=== PATIENT | female | born 1975 | race Caucasian/White ===

== ENCOUNTER 2021-03-17 15:32 | Emergency (ER) | payer OTHER ==
[2021-03-17 15:57] VITALS: BP 128/76; PULSE 65; RESP 15; TEMP 98.1
--- NOTE | 2021-03-17 16:57 | ED ---
Recheck HPI - General Chief Complaint: Recheck/Abnormal Lab/Rx Stated Complaint: Needs Covid Test Time Seen by Provider: 03/17/21 16:57 Source: patient Mode of arrival: ambulatory Limitations: no limitations - History of Present Illness Initial Comments: 46-year-old female patient presents to the emergency department today requesting testing for COVID-[place]. She denies any current symptoms or recent exposure. Declines any need for further medical screening exam. - Related Data Home Medications Medication Instructions Recorded Confirmed No Known Home Medications 03/17/21 03/17/21 Allergies Allergy/AdvReac Type Severity Reaction Status Date / Time No Known Allergies Allergy Verified 03/17/21 15:57 Review of Systems ROS Statement: Those systems with pertinent positive or pertinent negative responses have been documented in the HPI. ROS Other: All systems not noted in ROS Statement are negative. Past Medical History Past Medical History: No Reported History History of Any Multi-Drug Resistant Organisms: None Reported Past Surgical History: No Surgical Hx Reported Past Psychological History: No Psychological Hx Reported Smoking Status: Never smoker Past Alcohol Use History: None Reported Past Drug Use History: None Reported General Exam Limitations: no limitations General appearance: alert, in no apparent distress Neurological exam: Present: alert, oriented X3 Skin exam: Present: warm, dry, normal color. Absent: rash Course Vital Signs 03/17/21 15:54 Temperature 98.1 F Pulse Rate 65 Respiratory 15 Rate Blood Pressure 128/76 O2 Sat by Pulse 99 Oximetry Medical Decision Making - Medical Decision Making 46-year-old female patient presented for testing for COVID-19 in order crossable return to [place]. She tested negative him is provided with result. My attending is Dr. Hillman. - Lab Data Lab Results 03/17/21 Range/Units 15:57 Coronavirus (PCR) Not Detected (Not Detectd) Disposition Clinical Impression: Encounter for laboratory testing for COVID-19 virus Disposition: HOME SELF-CARE Condition: Good Instructions (If sedation given, give patient instructions): Coronavirus Disease 2019 (COVID-19) Is patient prescribed a controlled substance at d/c from ED?: No Referrals: None,Stated [Primary Care Provider] - 1-2 days Time of Disposition: 16:57
== END 2021-03-17 17:05 | disposition home or self-care (01) ==
LOC: EC 15:32
DX: Z11.52 Encounter for screening for COVID-19 (principal); Z20.822 Contact with and (suspected) exposure to COVID-19
CPT/HCPCS: 87635; 99282